=== PATIENT | male | born 2000 | race Caucasian/White ===

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

== ENCOUNTER → 2018-01-13 | Outpatient (REF) | payer SELFPAY, BC ==
[2018-01-13 15:08] LABS: CHLAMYDIA DNA AMPLIFICATION NEGATIVE (NEGATIVE); GC DNA AMPLIFICATION NEGATIVE (NEGATIVE)
== END ==
LOC: M LAB REF 12:58
DX: Z00.00 Encounter for general adult medical examination without abnormal findings (principal)

== ENCOUNTER 2025-06-07 19:36 | Emergency (ER) | payer OTHER, SELFPAY ==
[~2025-06-07] VITALS: Ht 185.4 cm; Wt 106.0 kg
[2025-06-07] MEDS: NS (Normal Saline) 0.9% 1,000 ML IV ONE (20:39)
[2025-06-07] MEDS: ONDANSETRON 4MG/2ML VIAL IV ONE (20:39)
[2025-06-07 20:47] LABS: BASO # 0.0 10^3/uL (0.0-0.2); BASO % 0.3 % (0.0-1.0); EOS # 0.0 10^3/uL (0.0-0.5); EOS % 0.2 % (0.0-3.0); LYMPH # 0.4 10^3/uL (1.5-5.0); LYMPH % 3.5 % (24.0-44.0); MONO # 0.7 10^3/uL (0.0-0.8); MONO % 6.5 % (2.0-8.0); NEUTROPHILS # 9.5 10^3/uL (1.5-8.5); NEUTROPHILS % 89.2 % (36.0-66.0); PLATELET COUNT, AUTOMATED 236 10^3/uL (150-450)
[2025-06-07 21:14] LABS: ALT/SGPT 41 U/L (7.0-40); AST/SGOT 31 U/L (<34); CALCIUM LEVEL 8.9 MG/DL (8.5-10.1); CARBON DIOXIDE LEVEL 28 MMOL/L (20-31); CHLORIDE LEVEL 101 MMOL/L (98-107); CREATININE FOR GFR 0.97 MG/DL (0.70-1.30); GLOMERULAR FILTRATION RATE > 90.0 (>60); POTASSIUM SERUM 4.3 MMOL/L (3.5-5.1); SODIUM LEVEL 141 MMOL/L (136-145)
[2025-06-07 22:34] LABS: KETONE, URINE AUTO RFX TRACE mg/dL (NEGATIVE); LEUKOCYTE ESTERASE UR AUTO RFX NEGATIVE (NEGATIVE); MUCUS, URINE RFX SMALL (NEGATIVE); NITRITE, URINE AUTO RFX NEGATIVE (NEGATIVE); RBC, URINE AUTO RFX 1 /HPF (0-3); SQUAM EPITHELIAL CELL UR AURFX 0 /HPF (0-6); WBC, URINE AUTO RFX 1 /HPF (0-3)
[2025-06-07] MEDS: ACETAMINOPHEN 325 MG TAB PO ONE (23:37)
[2025-06-08] MEDS ORDERED: ONDA-282 PO (00:22)
[2025-06-08 00:29] VITALS: BP 142/66; TEMP 100.4; O2SAT 98
== END 2025-06-08 00:30 | disposition home or self-care (01) ==
LOC: M ED 19:36
DX: A08.4 Viral intestinal infection, unspecified (principal); Z88.1 Allergy status to other antibiotic agents
CPT/HCPCS: 76705; 80048; 80076; 81001; 83690; 85025; 87428; 96361; 96374; 99284; J2405